=== PATIENT | female | born 1990 | race Caucasian/White ===

== ENCOUNTER 2017-04-17 14:38 | Emergency (ER) | payer MEDICAID ==
[~2017-04-17] VITALS: Ht 149.9 cm; Wt 50.0 kg
[~2017-04-17 14:38] MED LIST: KCL10 PO; KCL20 PO; MAGN400 PO; ONDA1TAB16 PO; PANT20 PO; SULF-154 PO
[2017-04-17 14:39] VITALS: BP 115/74; PULSE 90; RESP 16; TEMP 98.9; O2SAT 99
--- NOTE | 2017-04-17 14:49 | PD ---
HPI . neck pain x 1 day Chief Complaint: Back/ Neck Pain or Injury Time Seen by Provider: 14:49 Travel History International Travel<30 days: No Contact w/Intl Traveler<30days: No Traveled to known affect area: No History of Present Illness HPI 26-year-old female with no significant past medical history here with complaints of neck pain 1 day. Patient said she will go tense neck pain and stiffness. She's pointed to the side of her neck. She is touching her trapezius muscles and telling me that it hurts. She rates the pain as severe. She denies any radiation elsewhere. She denies any recent injury. PFSH Past Medical History Anxiety: No Depression: No Cancer: No Cardiovascular Problems: No Chemotherapy: No Endocrine: No Genitourinary: No Immune Disorder: No Musculoskeletal: No Neurologic: No Psychiatric: No Reproductive: No Respiratory: No Radiation Therapy: No ?: Not LMP: 04/02/17 Past Surgical History AICD: No Arteriovenous Shunt: No Insulin Pump: No Joint Replacement: No Pacemaker: No Other Surgery: Yes Social History Alcohol Use: No Tobacco Use: Yes Substance Use: No Allergies-Medications (Allergen,Severity, Reaction): Coded Allergies: *MDRO Multi-Drug Resistant Organism (Verified Adverse Reaction, Unknown, ) ESBL+E.Coli (urine-02/2016) Reported Meds & Prescriptions Reported Meds & Active Scripts Active Ibuprofen 800 Mg Tab 800 Mg PO TID Flexeril (Cyclobenzaprine HCl) 5 Mg Tab 5 Mg PO TID Review of Systems General / Constitutional: No: Fever, Chills Eyes: No: Blurred Vision, Photophobia, Visual changes HENT: Positive: Neck Stiffness, Neck Pain, No: Headaches Cardiovascular: No: Chest Pain or Discomfort Respiratory: No: Shortness of Breath Gastrointestinal: No: Abdominal Pain Genitourinary: No: Dysuria Musculoskeletal: No: Pain Skin: No Rash Neurologic: No: Weakness Psychiatric: No: Depression Endocrine: No: Polydipsia Hematologic/Lymphatic: No: Easy Bruising Physical Exam Narrative GENERAL: AAO x 3, no acute distress, Well-nourished, well-developed patient. SKIN: Warm and dry. No visible rashes or bruising. HEAD: Normocephalic and atraumatic. EYES: No scleral icterus. No injection or drainage. EOM intact, PERRLA ENT: No nasal drainage noted. Mucous membranes pink. Airway patent. NECK: Supple, trachea midline. No JVD. No C-spine process tenderness, flexion and extension normal, but limited secondary pain. Pain with rotation of the neck. Tenderness along the bilateral trapezius muscles greater on the right CARDIOVASCULAR: Regular rate and rhythm without murmurs, gallops, or rubs. RESPIRATORY: Breath sounds equal bilaterally. No accessory muscle use. No rhonchi or rales. GASTROINTESTINAL: Visual inspection normal EXTREMITIES: No cyanosis or edema. BACK: Nontender without obvious deformity. NEURO: CN II-12 intact, sewer pipe cleaner strength normal b/l, UE and LE 5/5, no focal deficits PSYCH: AAO x 3, normal affect. Data Data Last Documented VS Vital Signs Date Time Temp Pulse Resp B/P Pulse Ox O2 Delivery O2 Flow Rate FiO2 04/17/17 14:39 98.9 90 16 115/74 99 Room Air Orders Orphenadrine Inj (Norflex Inj) (04/17/17 15:00) Ketorolac Inj (Toradol Inj) (04/17/17 15:00) MDM Medical Decision Making Medical Screen Exam Complete: Yes Emergency Medical Condition: Yes Medical Record Reviewed: Yes Differential Diagnosis Cervical muscle strain, less likely C-spine fracture, less likely meningitis Narrative Course 26 yr old female here with acute neck pain. Exam reveals cervical muscle strain. Norflex and Toradol in ED. Patient denies any chance of . After meds: patient tells me she is much better. Now smiling. Flexeril and Ibuprofen at home. Ice. Patient verbalized understanding of instructions, questions were answered, and thanked me for their care. I advised them if their condition worsens, please return to the nearest emergency room for further care. Diagnosis Primary Impression: Cervical muscle strain Qualified Code: S16.1XXA - Cervical muscle strain, initial encounter Additional Impression: Neck pain Patient Instructions: General Instructions Additional Instructions: Apply ice to your neck for 15 minutes at least once an hour for the next several hours today. Muscle relaxers can cause drowsiness. Do not drive, swim or operate heavy machinery while using these medications. Please return to emergency department if your symptoms return or worsen. Follow up with your primary care provider. Take medications as prescribed. Med/Other Pt SpecificInfo: Prescription(s) given Scripts Ibuprofen 800 Mg [id number] Mg PO TID #21 TAB Prov:Maxi Suggs MD 04/17/17 Cyclobenzaprine (Flexeril)5 Mg Tab5 Mg PO TID #21 TAB Prov:Maxi Suggs MD 04/17/17 Disposition: 01 DISCHARGE HOME Condition: Stable Macey Correa Apr 17, 2017 14:49
[2017-04-17] MEDS ORDERED: KETOROLAC TROMETHAMINE 60 MG/2 ML (IM) VIAL IM ONE (15:00)
[2017-04-17] MEDS ORDERED: ORPHENADRINE INJ 60 MG/2 ML AMP IM ONE (15:00)
[2017-04-17] MEDS ORDERED: CYCL5TAB PO (15:04)
[2017-04-17] MEDS ORDERED: IBUP800T23 PO (15:04)
== END 2017-04-17 15:26 | disposition home or self-care (01) ==
LOC: NEPK 14:38
DX: S16.1XXA Strain of muscle, fascia and tendon at neck level, initial encounter (principal); Z79.899 Other long term (current) drug therapy; Z72.0 Tobacco use; X58.XXXA Exposure to other specified factors, initial encounter
CPT/HCPCS: 96372; 99284; J1885; J2360

== ENCOUNTER 2017-08-28 16:32 | Emergency (ER) | payer SELFPAY ==
[~2017-08-28] VITALS: Ht 149.9 cm; Wt 45.0 kg
[~2017-08-28 16:32] MED LIST changes: +CYCL5TAB PO; +IBUP1TAB7 PO; -KCL10 PO; -KCL20 PO; -MAGN400 PO; -ONDA1TAB16 PO; -PANT20 PO; -SULF-154 PO
[2017-08-28 16:34] VITALS: BP 136/82; PULSE 91; RESP 16; TEMP 97.7; O2SAT 100
[2017-08-28] MEDS ORDERED: CIPR0.2S EACH EAR (18:16)
--- NOTE | 2017-08-28 18:18 | PD ---
HPI . Ruptured tympanic membrane Chief Complaint: ENT Complaint Time Seen by Provider: 17:56 Travel History International Travel<30 days: No Contact w/Intl Traveler<30days: No Traveled to known affect area: No History of Present Illness HPI 27-year-old female presents emergency department for evaluation of a bilateral ear discharge. Patient states for the last 2 weeks she's had in her ear itching and she has been scratching inside her ear canal and subsequent pain and discharge. Patient denies any fever, chills, malaise, nausea, vomiting, diarrhea, lightheadedness, chest pain, abdominal pain. PFSH Past Medical History Asthma: Yes Anxiety: No Depression: No Cancer: No Cardiovascular Problems: No Chemotherapy: No Diminished Hearing: No Endocrine: No Genitourinary: No Immune Disorder: No Musculoskeletal: No Neurologic: No Psychiatric: No Reproductive: No Respiratory: No Radiation Therapy: No Influenza Vaccination: No ?: Not LMP: 08/27/17 Past Surgical History AICD: No Arteriovenous Shunt: No Ear Surgery: Yes ([employer] E[employer] CHILD) Insulin Pump: No Joint Replacement: No Pacemaker: No Other Surgery: Yes Social History Alcohol Use: No Tobacco Use: Yes (/2 ppd) Substance Use: No Allergies-Medications (Allergen,Severity, Reaction): Coded Allergies: *MDRO Multi-Drug Resistant Organism (Verified Adverse Reaction, Unknown, 08/28/17) ESBL+E.Coli (urine-02/2016) Reported Meds & Prescriptions Reported Meds & Active Scripts Active Ciprofloxacin Otic Drops 0.2% Soln 0.25 Ml EACH EAR BID Review of Systems Except as stated in HPI: all other systems reviewed are Neg Physical Exam Narrative GENERAL: Well-nourished, well-developed 27-year-old female patient in no acute distress. Nontoxic appearing. SKIN: Focused skin assessment warm/dry. HEAD: Normocephalic. Atraumatic. EYES: No scleral icterus. No injection or drainage. ENT: Mucosa pink and moist. No erythema or exudates. No uvular edema. No uvular , palatal, or tonsillar deviation. Airway patent. Nasal turbinates appear normal without nasal blood, purulent drainage or septal hematoma. EARS: Bilateral pinnae and external canals appear within normal limits. Bilateral tympanic appear perforated with purulent discharge noted in the ear canal. NECK: Supple, trachea midline. No JVD or lymphadenopathy. CARDIOVASCULAR: Regular rate and rhythm without murmurs, gallops, or rubs. RESPIRATORY: Breath sounds equal bilaterally. No accessory muscle use. GASTROINTESTINAL: Abdomen soft, non-tender, nondistended. MUSCULOSKELETAL: No cyanosis, or edema. Data Data Last Documented VS Vital Signs Date Time Temp Pulse Resp B/P (MAP) Pulse Ox O2 Delivery O2 Flow Rate FiO2 08/28/17 18:58 08/28/17 16:34 97.7 91 16 100 Orders Orders Ed Discharge Order (08/28/17 18:49) Ciprofloxacin 0.3% Opth Soln (Ciloxan 0. (08/28/17 19:15) MDM Medical Decision Making Medical Screen Exam Complete: Yes Emergency Medical Condition: Yes Differential Diagnosis Differential diagnoses include but not limited to otitis media, perforated eardrums, otitis externa Narrative Course 27-year-old female presents emergency department for some of bilateral ear drainage 2 days. He should states that she has experienced in her ear itchiness for 2 weeks and has been scratching. On physical exam it is noted that her tympanic membranes are perforated with purulent discharge in the ear canal. ENT information technology security manager, Dr Woods, called and he wants the patient started on ciprofloxacin otic drops and to follow up with him in his office next week. Patient is discharged home with ciprofloxacin Otic drops and given a mandatory referral to follow up with Dr. Woods. Diagnosis Primary Impression: Otitis media Qualified Codes: H66.013 - Acute suppurative otitis media with spontaneous rupture of ear drum, bilateral Referrals: Raymond Woods MD Patient Instructions: General Instructions, Ruptured Eardrum (ED) Additional Instructions: Please return to emergency department if your symptoms return or worsen. Follow up with your primary care provider. Take medications as prescribed. Follow-up Dr. Woods next week. Med/Other Pt SpecificInfo: Prescription(s) given Scripts Ciprofloxacin Otic Drops (Ciprofloxacin Otic Drops) 0.2% Soln 0.25 ML EACH EAR BID for Infection, #1 BOX 0 Refills Prov: Nita Kulkarni Ary MCGINNIS 08/28/17 Disposition: 01 DISCHARGE HOME Condition: Stable Nita Kulkarni Ary MCGINNIS Aug 28, 2017 18:18
[2017-08-28] MEDS ORDERED: CIPROFLOXACIN/HYDROCORTISONE OTIC 10 ML BTL EACH EAR ONE (19:00)
[2017-08-28] MEDS ORDERED: CIPROFLOXACIN 0.3% OPTH SOLN 2.5 ML BTL EACH EYE ONE (19:15)
== END 2017-08-28 19:41 | disposition home or self-care (01) ==
LOC: NEPD 16:32
DX: H66.013 Acute suppurative otitis media with spontaneous rupture of ear drum, bilateral (principal); F17.210 Nicotine dependence, cigarettes, uncomplicated; J45.909 Unspecified asthma, uncomplicated
CPT/HCPCS: 99283

== ENCOUNTER 2018-01-13 08:12 | Emergency (ER) | payer SELFPAY ==
[~2018-01-13] VITALS: Ht 149.9 cm; Wt 36.5 kg
[~2018-01-13 08:12] MED LIST changes: +CIPR0.2S EACH EAR; -CYCL5TAB PO; -IBUP1TAB7 PO
[2018-01-13 08:14] VITALS: BP 94/57; PULSE 78; RESP 18; TEMP 97.7; O2SAT 100
[2018-01-13] MEDS ORDERED: CIPR0.2S EACH EAR (08:59)
--- NOTE | 2018-01-13 09:08 | PD ---
HPI Chief Complaint: ENT Complaint Time Seen by Provider: 08:48 Travel History International Travel<30 days: No Contact w/Intl Traveler<30days: No Traveled to known affect area: No History of Present Illness HPI 27-year-old -Indian female presents emergency department with bilateral ear pain and drainage for the past week. She states it also is very itchy. She denies fever, chills, headache, sore throat, or other constitutional symptoms. Patient has history of MRSA. Patient has history of otitis externa in the past treated with Ciprodex. She has no known drug allergies. PFSH Past Medical History Asthma: Yes Anxiety: No Depression: No Cancer: No Cardiovascular Problems: No Chemotherapy: No Diminished Hearing: No Endocrine: No Genitourinary: No Immune Disorder: No Musculoskeletal: No Neurologic: No Psychiatric: No Reproductive: No Respiratory: No Radiation Therapy: No ?: Not LMP: DECEMBER 2017 Past Surgical History AICD: No Arteriovenous Shunt: No Ear Surgery: Yes ([employer] E[employer] CHILD) Insulin Pump: No Joint Replacement: No Pacemaker: No Other Surgery: Yes Social History Alcohol Use: No Tobacco Use: Yes (1/2 ppd) Substance Use: No Allergies-Medications (Allergen,Severity, Reaction): Coded Allergies: *MDRO Multi-Drug Resistant Organism (Verified Adverse Reaction, Unknown, 08/28/17) ESBL+E.Coli (urine-02/2016) Reported Meds & Prescriptions Reported Meds & Active Scripts Active Ciprofloxacin Otic Drops 0.2% Soln 0.25 Ml EACH EAR BID Review of Systems Except as stated in HPI: all other systems reviewed are Neg General / Constitutional: No: Fever Eyes: No: Visual changes HENT: Positive: Ear Discharge, Earache, No: Headaches, Vertigo, Lightheadedness , Sore Throat, Rhinitis, Rhinorrhea, Congestion, Nosebleed, Neck Stiffness, Neck Pain, Masses, Gingival Bleeding, Dental Difficulties Cardiovascular: No: Chest Pain or Discomfort Respiratory: No: Shortness of Breath Gastrointestinal: No: Abdominal Pain Genitourinary: No: Dysuria Musculoskeletal: No: Pain Skin: No Rash Neurologic: No: Weakness Psychiatric: No: Depression Endocrine: No: Polydipsia Hematologic/Lymphatic: No: Easy Bruising Physical Exam Narrative GENERAL: Patient appears in no obvious distress SKIN: Warm and dry. Normal color. Normal turgor. Patient has rash around both ear canals and ear lobes consistent with eczema. HEAD: Atraumatic. Normocephalic. EYES: Pupils equal and round. No scleral icterus. No injection or drainage. ENT: No nasal bleeding or discharge. Mucous membranes pink and moist. Both ear canals are erythematous and swollen with yellowish green discharge noted bilaterally. TMs are not visualized. Pharynx is clear. Airways patent. No sinus tenderness to palpation. NECK: Trachea midline. Supple and nontender. CARDIOVASCULAR: Regular rate and rhythm. RESPIRATORY: No accessory muscle use. Clear to auscultation. Breath sounds equal bilaterally. MUSCULOSKELETAL: Extremities without clubbing, cyanosis, or edema. No obvious deformities. NEUROLOGICAL: Awake and alert. No obvious cranial nerve deficits. Motor grossly within normal limits. Five out of 5 muscle strength in the arms and legs. Normal speech. PSYCHIATRIC: Appropriate mood and affect; insight and judgment normal. Data Data Last Documented VS Vital Signs Date Time Temp Pulse Resp B/P (MAP) Pulse Ox O2 Delivery O2 Flow Rate FiO2 01/13/18 08:14 97.7 78 18 94/57 (69) 100 MDM Medical Decision Making Medical Screen Exam Complete: Yes Emergency Medical Condition: Yes Medical Record Reviewed: Yes Differential Diagnosis Otitis media. Otitis externa. Eczema. Narrative Course Patient is medically stable at time of exam. Patient will be treated with Ciprodex optic drops twice daily for the next 7-10 days. Patient to follow-up with symptoms do not improve as needed. Diagnosis Primary Impression: Otitis externa Qualified Codes: H60.93 - Unspecified otitis externa, bilateral Patient Instructions: General Instructions, Otitis Externa (ED) Additional Instructions: Patient will be treated with Ciprodex optic drops twice daily for the next 7-10 days. Patient to follow-up with symptoms do not improve as needed. Med/Other Pt SpecificInfo: Prescription(s) given Scripts Ciprofloxacin Otic Drops (Ciprofloxacin Otic Drops) 0.2% Soln 0.25 ML EACH EAR BID for Infection, #1 BOX 0 Refills Prov: Phong Valero MD 01/13/18 Disposition: 01 DISCHARGE HOME Condition: Stable Mike Guillen Jan 13, 2018 09:08
== END 2018-01-13 09:35 | disposition home or self-care (01) ==
LOC: NEPD 08:12
DX: H60.93 Unspecified otitis externa, bilateral (principal); J45.909 Unspecified asthma, uncomplicated; F17.210 Nicotine dependence, cigarettes, uncomplicated
CPT/HCPCS: 99283